=== PATIENT | male | born 1980 | race Caucasian/White ===

== ENCOUNTER 2018-04-10 12:08 | Emergency (ER) | payer OTHER, SELFPAY ==
[2018-04-10 12:17] VITALS: BP 141/86; PULSE 83; RESP 14; TEMP 36.1; O2SAT 99; BMI 30.7
--- NOTE | 2018-04-10 12:26 | ED_ITS ---
HPI - Abdominal Pain <BIRGIT Porras - Last Filed: 04/10/18 22:05> General Chief Complaint: Abdominal Pain Stated Complaint: THINKS HERNIA AND NO BM Time Seen by Provider: 04/10/18 12:13 History of Present Illness HPI narrative: 37-year-old male here for complaint of pain into his lower abdomen area and also to his left inguinal area for the last week and half. He was seen by his primary care provider today which felt discomfort on exam to the inguinal area and was concerned for a hernia. Patient states that he had a bowel movement that relieve some of his pain of prior to exam. He denies any fevers or chills. No trauma to the area. He denies any urinary symptoms. No nausea or vomiting. Positive p.o. intake. No other concerns or complaints. MD complaint: abdominal pain Related Data Home Medications Medication Instructions Recorded Confirmed naproxen 250 mg PO TID #0 09/17/16 04/10/18 Allergies Allergy/AdvReac Type Severity Reaction Status Date / Time No Known Drug Allergies Allergy Verified 04/10/18 12:20 Review of Systems <BIRGIT Porras - Last Filed: 04/10/18 22:05> Constitutional Reports as per HPI Eyes Denies change in vision, Denies eye discharge, Denies irritation and Denies loss of vision ENT Ears, Nose, Mouth, and Throat: Denies change in voice, Denies neck pain and Denies sore throat Cardiovascular Denies chest pain, Denies irregular heart rhythm, Denies lightheadedness, Denies palpitations, Denies dyspnea, Denies dyspnea on exertion and Denies orthopnea Respiratory Denies cough, Denies dyspnea, Denies dyspnea on exertion and Denies wheezing Gastrointestinal Comments: Lower abdominal pain and left inguinal pain Genitourinary Denies hematuria, Denies flank pain, Denies urinary incontinence and Denies urinary urgency Musculoskeletal Denies neck pain Integumentary/Breasts Denies pruritus, Denies erythema, Denies rash and Denies wounds Neurologic Denies confusion and Denies loss of vision Psychiatric Denies anxiety, Denies confusion, Denies depression, Denies homicidal ideation and Denies suicidal ideation Endocrine Denies palpitations Hematologic/Lymphatic Denies easy bruising Allergic/Immunologic Denies wheezing Exam <BIRGIT Porras - Last Filed: 06/25/18 22:05> Initial Vital Signs Initial Vital Signs: Vital Signs Temperature 97.0 F L 04/10/18 12:17 Pulse Rate 83 04/10/18 12:17 Respiratory Rate 14 04/10/18 12:17 Blood Pressure 141/86 H 04/10/18 12:17 Pulse Oximetry 99 04/10/18 12:17 Const General: cooperative and well developed Nutritional Appearance: well nourished Orientation: alert, awake, oriented x3 and not confused [facility] Mouth: oral mucosae normal and moist mucous membranes Eyes Conjunctivae: conjunctivae normal Sclera: sclerae normal Pupils: PERRL EOM: EOM intact bilaterally Resp Effort & Inspection: normal respiratory effort, able to speak in complete sentences, no respiratory distress and no use of accessory muscles Auscultation: clear to auscultation bilaterally, no rales, no rhonchi and no wheezes Cardio Rate: regular rate Rhythm: regular rhythm Heart Sounds: no click, no gallops, no murmurs and no rubs Pulses: normal peripheral pulses GI Inspection: non-distended Palpation: soft, no hepatosplenomegaly, No guarding, No pulsatile mass and tender (Tenderness to infra umbilical area on palpation) Auscultation: normal bowel sounds External: normal external exam, circumcised, no hernia, no inguinal lymphadenopathy and tenderness (Tenderness to left inguinal area on palpation no hernia palpated) Penis: normal penis Meatus: meatus normal Scrotum: scrotum normal Testes: normal Skin General: no rashes or lesions noted, No jaundice and No petechiae <Vicente Reyes DO - Last Filed: 04/12/18 20:06> Initial Vital Signs Initial Vital Signs: Vital Signs Temperature 97.0 F L 04/10/18 12:17 Pulse Rate 83 04/10/18 12:17 Respiratory Rate 14 04/10/18 12:17 Blood Pressure 141/86 H 04/10/18 12:17 Pulse Oximetry 99 04/10/18 12:17 Course <BIRGIT Porras - Last Filed: 04/10/18 22:05> Orders Ordered: ED Orders 04/10/18 13:07 CT abdomen pelvis w con Stat 04/10/18 13:25 Complete Blood Count AUTO DIFF Stat Comprehensive Metabolic Panel Stat Lipase Stat Vital Signs - 8 hr 04/10/18 15:19 04/10/18 16:00 Pulse Rate 82 85 Respiratory Rate 12 20 Blood Pressure 135/79 H Blood Pressure [Left Arm] 132/87 H Pulse Oximetry 100 100 <Vicente Reyes DO - Last Filed: 04/12/18 20:06> Orders Ordered: ED Orders 04/10/18 13:07 CT abdomen pelvis w con Stat 04/10/18 13:25 Complete Blood Count AUTO DIFF Stat Comprehensive Metabolic Panel Stat Lipase Stat Vital Signs - 8 hr 04/10/18 15:19 04/10/18 16:00 Pulse Rate 82 85 Respiratory Rate 12 20 Blood Pressure 135/79 H Blood Pressure [Left Arm] 132/87 H Pulse Oximetry 100 100 MDM - Abdominal Pain <BIRGIT Porras - Last Filed: 04/10/18 22:05> Lab Data Result diagrams: 04/10/18 13:25 04/10/18 13:25 Lab Results 04/10/18 04/10/18 Range/Units 13:25 13:25 WBC 7.0 (4.5-11.0) X10^3/uL RBC 4.99 (4.5-5.9) X10^6/uL Hgb 16.0 (13.5-17.5) g/dL Hct 46.4 (41-53) % MCV 93.0 (80-100) fL MCH 32.1 (26-34) PG MCHC 34.5 (30-36) % RDW 13.6 (11.6-14.8) % Plt Count 288 (150-400) X10^3/uL Neut % (Auto) 67.4 (50-75) % Lymph % (Auto) 24.6 L (25-40) % [place] % (Auto) 6.0 (3-14) % Eos % (Auto) 1.3 L (2-4) % Baso % (Auto) 0.7 (0-2) % Neut # (Auto) 4700 (5492-1233) /uL Sodium 143 (137-145) mmol/L Potassium 4.1 (3.4-5.1) mmol/L Chloride 105 (98-107) mmol/L Carbon Dioxide 26 (22-32) mmol/L BUN 16 (9-20) mg/dL Creatinine 0.80 (0.66-1.25) mg/dL Estimated GFR > 60.0 (>60) mL/min BUN/Creatinine Ratio 20.0 (6-22) Glucose 92 (70-100) mg/dL Calcium 9.9 (8.4-10.2) mg/dL Total Bilirubin 0.7 (0.2-1.3) mg/dL AST 35 (17-59) IU/L ALT 43 (21-72) IU/L Alkaline Phosphatase 79 (38-126) U/L Total Protein 8.1 (6.3-8.2) g/dL Albumin 4.6 (3.5-5.0) g/dL Globulin 3.5 (1.7-4.1) g/dL Albumin/Globulin Ratio 1.3 (1.0-2.8) Lipase 34 (23-300) U/L Imaging Data CT scan - abdomen: Radiologist's impression: PROCEDURE: CT ABDOMEN PELVIS W CON INDICATIONS: Pain to left groin and right lower quadrant TECHNIQUE: After the administration of oral and intravenous contrast, 5 mm thick sections acquired from the diaphragms to the symphysis. 5 mm thick coronal and sagittal reformats were performed. For radiation dose reduction, the following was used: automated exposure control, adjustment of mA and/or kV according to patient size. COMPARISON: None. FINDINGS: Image quality: Excellent. ABDOMEN: Lung bases: Lung bases are clear. Heart size is normal. Solid organs: Liver is normal in size and enhancement. Gallbladder is not enlarged. Biliary system is non-dilated. Pancreas enhances normally. Spleen is normal in size and enhancement. No adrenal nodules. Kidneys are normal in size and enhancement, without hydronephrosis. Peritoneum and bowel: There are areas of the wall thickening, which is more pronounced involving the transverse colon. The small bowel loops are nondilated. The appendix is not clearly seen stomach on however, what is felt to represent the appendix is grossly unremarkable without surrounding inflammation (image 62, series 2). Nodes and vessels: No retroperitoneal or mesenteric adenopathy. Aorta and inferior vena cava are normal in caliber. Miscellaneous: There is a small periumbilical fat containing hernia. PELVIS: Genitourinary: Bladder wall thickness is normal. No free fluid or loculated fluid collection is identified. Miscellaneous: No inguinal hernias or adenopathy. Bones: No suspicious bony lesions. No vertebral body compression fractures. IMPRESSION: 1. No convincing acute abnormality is appreciated within the abdomen or pelvis. 2. Nonspecific prominence of the wall of the colon is best appreciated to the transverse colon. Please correlate clinically to exclude the possibility of colitis ( infectious or inflammatory). No bowel obstruction. Dictated by: Paul Luz M.D. on 04/10/2018 at 14:20 Approved by: Paul Luz M.D. on 04/10/2018 at 14:27 MDM Narrative Medical decision making narrative: On exam patient with tenderness to infra umbilical area and also to the left inguinal area no hernia was appreciated on physical exam. CT of the abdomen and pelvis was obtained with no identified hernia. Slight thickening of the transverse colon was seen on CT however patient was not painful to the upper abdominal area. And laboratory results were unremarkable. Signs and symptoms presents as strain into the groin area. And generalized discomfort to the lower abdomen secondary to IBS. Over-the- counter Tylenol Motrin as needed for discomfort. Follow up with her primary care provider the next few days for re-evaluation. For any worsening symptoms return to the emergency room. <Vicente Reyes, DO - Last Filed: 04/12/18 20:06> Lab Data Lab Results 04/10/18 04/10/18 Range/Units 13:25 13:25 WBC 7.0 (4.5-11.0) X10^3/uL RBC 4.99 (4.5-5.9) X10^6/uL Hgb 16.0 (13.5-17.5) g/dL Hct 46.4 (41-53) % MCV 93.0 (80-100) fL MCH 32.1 (26-34) PG MCHC 34.5 (30-36) % RDW 13.6 (11.6-14.8) % Plt Count 288 (150-400) X10^3/uL Neut % (Auto) 67.4 (50-75) % Lymph % (Auto) 24.6 L (25-40) % [place] % (Auto) 6.0 (3-14) % Eos % (Auto) 1.3 L (2-4) % Baso % (Auto) 0.7 (0-2) % Neut # (Auto) 4700 (4315-8627) /uL Sodium 143 (137-145) mmol/L Potassium 4.1 (3.4-5.1) mmol/L Chloride 105 (98-107) mmol/L Carbon Dioxide 26 (22-32) mmol/L BUN 16 (9-20) mg/dL Creatinine 0.80 (0.66-1.25) mg/dL Estimated GFR > 60.0 (>60) mL/min BUN/Creatinine Ratio 20.0 (6-22) Glucose 92 (70-100) mg/dL Calcium 9.9 (8.4-10.2) mg/dL Total Bilirubin 0.7 (0.2-1.3) mg/dL AST 35 (17-59) IU/L ALT 43 (21-72) IU/L Alkaline Phosphatase 79 (38-126) U/L Total Protein 8.1 (6.3-8.2) g/dL Albumin 4.6 (3.5-5.0) g/dL Globulin 3.5 (1.7-4.1) g/dL Albumin/Globulin Ratio 1.3 (1.0-2.8) Lipase 34 (23-300) U/L Discharge Plan Departure Patient Disposition: Home, Self-Care Clinical Impression: Inguinal strain Discharge Date/Time: 04/10/18 15:59 Interventions: ED Discharge Assessment Last Done: 04/10/18 16:00 Instructions: DI for Groin Strain Activity Restrictions/Additional Instructions: Laboratory results today were unremarkable. CT of the abdomen was unremarkable exception of some thickening of the wall of the transverse colon. Signs and symptoms presents as a strain into the groin area and pain is secondary to irritable bowel syndrome. Use [id number] Tylenol Motrin as needed for any discomfort. Follow up with primary care provider later this week for re- evaluation. For any worsening symptoms return to the emergency room. Prescriptions: No Action naproxen 250 MG tablet 250 mg PO TID Qty: 0 RF: 0 Referrals: Marguerite Chen DO [Primary Care Provider] - <Vicente Reyes DO - Last Filed: 04/12/18 20:06> Cosign ED Attending Paige Attestation: I was immediately available in the department for consultation. Documentation has been reviewed. I agree with assessment and plan.
--- NOTE | 2018-04-10 13:07 | DI.CT.S_ITS ---
PROCEDURE: CT ABDOMEN PELVIS W CON INDICATIONS: Pain to left groin and right lower quadrant TECHNIQUE: After the administration of oral and intravenous contrast, 5 mm thick sections acquired from the diaphragms to the symphysis. 5 mm thick coronal and sagittal reformats were performed. For radiation dose reduction, the following was used: automated exposure control, adjustment of mA and/or kV according to patient size. COMPARISON: None. FINDINGS: Image quality: Excellent. ABDOMEN: Lung bases: Lung bases are clear. Heart size is normal. Solid organs: Liver is normal in size and enhancement. Gallbladder is not enlarged. Biliary system is non-dilated. Pancreas enhances normally. Spleen is normal in size and enhancement. No adrenal nodules. Kidneys are normal in size and enhancement, without hydronephrosis. Peritoneum and bowel: There are areas of the wall thickening, which is more pronounced involving the transverse colon. The small bowel loops are nondilated. The appendix is not clearly seen stomach on however, what is felt to represent the appendix is grossly unremarkable without surrounding inflammation (image 62, series 2). Nodes and vessels: No retroperitoneal or mesenteric adenopathy. Aorta and inferior vena cava are normal in caliber. Miscellaneous: There is a small periumbilical fat containing hernia. PELVIS: Genitourinary: Bladder wall thickness is normal. No free fluid or loculated fluid collection is identified. Miscellaneous: No inguinal hernias or adenopathy. Bones: No suspicious bony lesions. No vertebral body compression fractures. IMPRESSION: 1. No convincing acute abnormality is appreciated within the abdomen or pelvis. 2. Nonspecific prominence of the wall of the colon is best appreciated to the transverse colon. Please correlate clinically to exclude the possibility of colitis (infectious or inflammatory). No bowel obstruction. Dictated by: Paul Luz M.D. on 04/10/2018 at 14:20 Approved by: Paul Luz M.D. on 04/10/2018 at 14:27
[2018-04-10 13:33] LABS: Add Manual Diff / Slide Review NO; Basophils Percent Auto 0.7 % (0-2); Eosinophils Percent Auto 1.3 % (2-4); Hematocrit 46.4 % (41-53); Lymphocytes Percent Auto 24.6 % (25-40); Mean Corpuscular HGB Conc 34.5 % (30-36); Mean Corpuscular Hemoglobin 32.1 PG (26-34); Neutrophils Absolute Auto 4700 /uL (3000-5900); Neutrophils Percent Auto 67.4 % (50-75); Platelet Count 288 X10^3/uL (150-400); Red Blood Cell Count 4.99 X10^6/uL (4.5-5.9); Red Cell Distribution Width 13.6 % (11.6-14.8)
[2018-04-10 13:47] LABS: Alanine Aminotransferase 43 IU/L (21-72); Albumin 4.6 g/dL (3.5-5.0); Albumin Globulin Ratio 1.3 (1.0-2.8); Alkaline Phosphatase 79 U/L (38-126); Aspartate Aminotransferase 35 IU/L (17-59); Bilirubin Total 0.7 mg/dL (0.2-1.3); Blood Urea Nitrogen 16 mg/dL (9-20); Calcium 9.9 mg/dL (8.4-10.2); Carbon Dioxide 26 mmol/L (22-32); Chloride 105 mmol/L (98-107); Estimated Glomerular Filt Rate > 60.0 mL/min (>60); Globulin 3.5 g/dL (1.7-4.1); Glucose 92 mg/dL (70-100); HEMOLYSIS 29 (0-50); Lipase 34 U/L (23-300); Potassium 4.1 mmol/L (3.4-5.1); Sodium 143 mmol/L (137-145); Total Protein 8.1 g/dL (6.3-8.2)
[2018-04-10 15:19] VITALS: BP 132/87; PULSE 82; RESP 12; O2SAT 100
[2018-04-10 16:00] VITALS: BP 135/79; PULSE 85; RESP 20; O2SAT 100
== END 2018-04-10 15:59 | disposition home or self-care (01) ==
PROVIDERS: Emergency Provider Nurse Practitioner Family; PCP Family Medicine
DX: S76.219A Strain of adductor muscle, fascia and tendon of unspecified thigh, initial encounter (principal)
CPT/HCPCS: 36591; 74177; 80053; 81003; 83690; 85025; 99282; 99284

== ENCOUNTER 2019-12-12 13:51 | Day surgery (SDC) | payer OTHER, SELFPAY ==
--- NOTE | 2019-12-12 | PATH_ITS ---
[facility] Accession Number: [id number] . 01 Material submitted: . colon - RANDOM COLON BIOPSIES . 02 Diagnosis: Random Colon, Biopsies: Colonic mucosa with no diagnostic abnormality. Negative for active, chronic, and microscopic colitis. Negative for dysplasia and malignancy. . MRV 12/14/2019 1107 Local . 02 Electronically signed: . Josafat Dinh MD, PhD, Pathologist NPI- [id number] . 01 Gross description: . RANDOM COLON BIOPSIES: Received in formalin are multiple fragment(s) of [place], soft tissue measuring 0.6 x 0.4 x 0.2 cm in aggregate submitted entirely in 1 cassette(s) /QBJ 12/13/2019 0530 Local . 02 Pathologist provided ICD-10: R19.4 . 02 CPT . 052135 Performed at: 01 [facility] [address], [place], [place] [id number] MD Antonio Francis MD Phone: [phone] Performed at: 02 [facility] [address] [place], [place] [id number] MD Shari Bacon MD Phone: [phone]
[2019-12-12 14:21] VITALS: BP 135/82; PULSE 88; RESP 20; TEMP 37.1; O2SAT 95; BMI 33.2
[2019-12-12] MEDS: SODIUM CHLORIDE 0.9% 1,000 ML 200 ML IV (14:21)
--- NOTE | 2019-12-12 14:21 | PM.HP.1 ---
History of Present Illness History of Present Illness Date Patient Seen: 12/12/19 Chief complaint: [id number] Narrative: Rectal bleeding and diarrhea Patient History Family & Social History Family History (Updated 09/17/16 @ 00:00 by Conversion Provider) Father Age: 63 Diabetes mellitus Essential hypertension High cholesterol Tobacco & Substance use: Smoking Status Former smoker alcohol intake frequency 0-2 drinks per day Substance Use Type does not use Meds Home Medications and Allergies Allergies Allergy/AdvReac Type Severity Reaction Status Date / Time No Known Drug Allergies Allergy Verified 12/12/19 14:18 Exam Narrative Exam Narrative: Oropharynx free of lesions Chest clear to auscultation percussion Cardiac exam reveals no S3 or murmur Assessment & Plan Assessment & Plan narrative: Rectal bleeding and diarrhea. Need for colonoscopy to rule out underlying colitis. Risks, benefits, and alternatives have been explained.
--- NOTE | 2019-12-12 14:22 | PM.OP.ENDO ---
Operative Date/Time/Diagnoses Date of procedure: 12/12/19 Pre-op diagnosis: See indication and findings Procedure & Clinicians Study performed: Colonoscopy Same procedure as scheduled: Yes Indications: Rectal bleeding and diarrhea Surgeon: Ariela Echevarria Procedure Notes Procedure in detail: After informed consent was obtained the patient was placed in the left lateral decubitus position. The video colonoscope was introduced through rectum and slowly advanced to the cecum. On slow withdrawal mucosa was carefully examined. Preparation was good. The scope was removed. The patient tolerated procedure well. Blood loss none Complications none Sedation MAC Findings 1. Moderate internal hemorrhoids 2. Otherwise negative colonoscopy to cecum. Random biopsies taken to rule out microscopic colitis.
[2019-12-12 15:56] VITALS: BP 132/80; PULSE 81; RESP 17; TEMP 36.4; O2SAT 98
[2019-12-12 16:01] VITALS: BP 115/81; PULSE 69; RESP 9; TEMP 36.4; O2SAT 99
[2019-12-12 16:06] VITALS: BP 120/85; PULSE 90; RESP 10; TEMP 36.4; O2SAT 99
[2019-12-12 16:11] VITALS: BP 145/95; PULSE 84; RESP 15; TEMP 36.3; O2SAT 97
== END 2019-12-12 16:40 | disposition home or self-care (01) ==
PROVIDERS: PCP Family Medicine; Referring Provider Internal Medicine Gastroenterology; Visit Provider Internal Medicine Gastroenterology
PROC: 0DJD8ZZ Inspection of Lower Intestinal Tract, Via Natural or Artificial Opening Endoscopic (ICD-10-PCS; CPT 45378; principal; 2019-12-12 15:00)
DX: K62.5 Hemorrhage of anus and rectum (principal); R19.7 Diarrhea, unspecified; K64.8 Other hemorrhoids
CPT/HCPCS: 45380; J2250; J2704

== ENCOUNTER 2023-05-29 23:32 | Emergency (ER) | payer OTHER, SELFPAY ==
[2023-05-29 23:37] VITALS: BP 175/95; PULSE 84; RESP 16; TEMP 36.1; O2SAT 98; BMI 31.7
--- NOTE | 2023-05-29 23:41 | DI.RAD.S_ITS ---
PROCEDURE: XR CHEST 1V INDICATIONS: chest pain TECHNIQUE: One view of the chest was acquired. COMPARISON: None. FINDINGS: Surgical changes and devices: None. Lungs and pleura: Lungs are clear. No pleural effusions or pneumothorax. Mediastinum: Mediastinal contours appear normal. Heart size is normal. Bones and chest wall: No suspicious bony lesions. Overlying soft tissues appear unremarkable. IMPRESSION: 1. No acute cardiopulmonary disease. Dictated by: Antonio Morales M.D. on 05/30/2023 at 0:47 Approved by: Antonio Morales M.D. on 05/30/2023 at 0:54
[2023-05-30 00:27] LABS: Add Manual Diff / Slide Review NO; Basophils Absolute Auto 100 /uL (0-100); Basophils Percent Auto 0.7 % (0-2); Eosinophils Absolute Auto 100 /uL (0-450); Hematocrit 45.4 % (41-53); Hemoglobin 15.7 g/dL (13.5-17.5); Lymphocytes Absolute Auto 1800 /uL (1100-4500); Lymphocytes Percent Auto 22.5 % (25-40); Mean Corpuscular HGB Conc 34.6 % (30-36); Mean Corpuscular Hemoglobin 31.7 PG (26-34); Mean Corpuscular Volume 91.8 fL (80-100); Monocytes Absolute Auto 600 /uL (0-900); Monocytes Percent Auto 7.5 % (3-14); Neutrophils Absolute Auto 5500 /uL (1500-7000); Neutrophils Percent Auto 68.3 % (50-75); Platelet Count 292 X10^3/uL (150-400); Red Blood Cell Count 4.95 X10^6/uL (4.5-5.9); Red Cell Distribution Width 13.1 % (11.6-14.8)
[2023-05-30 00:30] VITALS: BP 144/97; PULSE 81; RESP 16; O2SAT 96
[2023-05-30 00:35] LABS: Alanine Aminotransferase 21 IU/L (<50); Albumin 4.3 g/dL (3.5-5.0); Albumin Globulin Ratio 1.2 (1.0-2.8); Alkaline Phosphatase 85 U/L (38-126); Aspartate Aminotransferase 27 IU/L (17-59); BUN Creatinine Ratio 19.8 (6-22); Bilirubin Total 0.7 mg/dL (0.2-1.3); Blood Urea Nitrogen 20 mg/dL (9-20); Calcium 9.5 mg/dL (8.4-10.2); Carbon Dioxide 31 mmol/L (22-32); Chloride 103 mmol/L (98-107); Creatine Kinase 96 U/L (55-170); Estimated Glomerular Filt Rate > 60 mL/min (>60); Globulin 3.7 g/dL (1.7-4.1); Glucose 120 mg/dL (70-100); HEMOLYSIS 18 (0-50); Lipase 63 U/L (23-300); Potassium 3.7 mmol/L (3.4-5.1); Sodium 142 mmol/L (137-145)
[2023-05-30 00:42] LABS: C-Reactive Protein Quant 0.8 mg/dL (<1.0)
[2023-05-30 00:43] LABS: Prothrombin Time 11.5 SECONDS (10.1-12.7)
[2023-05-30 00:46] LABS: PTT Partial Thromboplastin Tim 31 SECONDS (26-36)
[2023-05-30 00:47] LABS: Troponin I < 0.012 ng/mL (0.01-0.034)
[2023-05-30 00:52] LABS: Erythrocyte Sedimentation Rate 8 MM/HR (0-15)
[2023-05-30 01:01] LABS: D Dimer < 215 ng/ml (<500)
--- NOTE | 2023-05-30 01:03 | ED.CHESTPAIN ---
HPI - Chest Pain General Chief Complaint: Chest Pain Stated Complaint: CHEST PAIN Time Seen by Provider: 05/29/23 23:37 Source: patient Mode of arrival: Ambulatory History of Present Illness HPI narrative: 42-year-old male former smoker presents with a chief complaint of right-sided chest pain with radiation into his right shoulder this started sudden onset while playing video games tonight. He states that he has a history of irritable bowel syndrome and had a loose stool associated with this episode of pain. He feels anxious and states that he has a strong cardiac history in his family. He states he had this sudden onset sharp and stabbing pain and when he pressed his right pectoral muscle it rapidly worsened the pain as did movement. He denies any exertional symptoms or exercise intolerance. He denies recent travel, trauma or injury. Related Data Home Medications Medication Instructions Recorded Confirmed dicyclomine 20 mg tablet 20 mg PO 4XD 05/30/23 05/30/23 omeprazole 20 mg capsule,delayed 20 mg PO DAILY 05/30/23 05/30/23 release Allergies Allergy/AdvReac Type Severity Reaction Status Date / Time oral contrast AdvReac Diarrhea Uncoded 05/29/23 23:40 Review of Systems Review of Systems Narrative: GENERAL: Denies chills, fatigue, malaise, fever, sweats. HEENT: Denies sinus pain, ear pain, sore throat, difficulty swallowing, dizziness. RESPIRATORY: Denies dyspnea, cough, wheezing, hemoptysis, sputum. CARDIOVASCULAR: See HPI GASTROINTESTINAL: Denies nausea, vomiting, abdominal pain, diarrhea, constipation, melena. : Denies dysuria, frequency, incontinence, hematuria, urinary retention. MUSCULOSKELETAL: denies weakness, joint pain, or bony pain SKIN: Denies rash, skin lesions, or other NEUROLOGIC: Denies weakness, headache, numbness, change in speech, confusion, seizures, incoordination. PSYCHIATRIC: No concerning psychosocial issues. 12 point review of systems is negative except for those stated above Patient History Surgical History Status post hernia repair Status post knee surgery Family History Father Age: 66 Diabetes mellitus Essential hypertension High cholesterol Social History household members: none Smoking Status: Former smoker Smoking Status: Former smoker alcohol intake frequency: 0-2 drinks per day Substance Use Type: does not use Exam Narrative Exam Narrative: GENERAL: [42] year old patient appears stated age. Well-developed patient, in mild distress. HEAD: Atraumatic. Normocephalic. EYES: Pupils equal round and reactive. Extraocular motions intact. No scleral icterus. No injection or drainage. ENT: Nose without bleeding, purulent drainage. Throat without erythema, tonsillar hypertrophy or exudate. Airway patent. NECK: Trachea midline. Non tender CARDIOVASCULAR: Regular rate and rhythm without murmurs, gallops, or rubs. Right-sided chest pain to palpation RESPIRATORY: Clear to auscultation. Breath sounds equal bilaterally. No wheezes, rales, or rhonchi. GASTROINTESTINAL: Abdomen soft, non-tender, nondistended. EXTREMITIES: No edema or joint tenderness. BACK: Nontender without deformity or crepitance. No flank tenderness. NEURO: AOx3. SKIN: No rash or erythema of visible areas Initial Vital Signs Initial Vital Signs: Vital Signs Temperature 97 F L 05/29/23 23:37 Pulse Rate 84 05/29/23 23:37 Respiratory Rate 16 05/29/23 23:37 Blood Pressure 175/95 H 05/29/23 23:37 Pulse Oximetry 98 05/29/23 23:37 Oxygen Delivery Method Room Air 05/29/23 23:37 Scores HEART Score Heart Score history: Slightly Suspicious Heart Score EKG: Normal Heart Score Age: < 45 years old Heart Score risk factors: No known risk factors Heart Score troponin: < or = to normal limit Heart Score Total: 0 Course Orders Ordered: ED Orders 05/29/23 23:41 XR chest 1V Stat Complete Blood Count AUTO DIFF Stat Comprehensive Metabolic Panel Stat Lipase Stat Magnesium Stat PTT Partial Thromboplastin Sam Stat Prothrombin Time INR Stat Troponin & CK Cardiac Panel Stat EKG-12 Lead Stat 05/29/23 23:50 CRP [C-Reactive Protein Quant] Stat D Dimer Stat ESR [Erythrocyte Sedimentation Rate] Stat 05/30/23 02:56 Troponin & CK Cardiac Panel Stat Discontinued Medications Aspirin (Aspirin 81 Mg Chew Tab) 324 mg PO NOW ONE Stop: 05/29/23 23:42 Last Admin: 05/30/23 01:13 Dose: 324 mg Documented By: SB Vital Signs Vital signs: Vital Signs - 8 hr 08/13/23 23:37 05/30/23 00:30 05/30/23 04:04 Temperature 97 F L Pulse Rate 84 81 69 Respiratory Rate 16 16 20 Blood Pressure 175/95 H 144/97 H 130/89 Pulse Oximetry 98 96 97 Oxygen Delivery Method Room Air Room Air Room Air MDM - Chest Pain Lab Data 05/30/23 00:03 05/30/23 00:03 Labs: Lab Results 05/30/23 05/30/23 05/30/23 Range/Units 00:03 00:03 00:03 WBC 8.0 (4.5-11.0) X10^3/uL RBC 4.95 (4.5-5.9) X10^6/uL Hgb 15.7 (13.5-17.5) g/dL Hct 45.4 (41-53) % MCV 91.8 (80-100) fL MCH 31.7 (26-34) PG MCHC 34.6 (30-36) % RDW 13.1 (11.6-14.8) % Plt Count 292 (150-400) X10^3/uL Neut % (Auto) 68.3 (50-75) % Lymph % (Auto) 22.5 L (25-40) % [place] % (Auto) 7.5 (3-14) % Eos % (Auto) 1.0 L (2-4) % Baso % (Auto) 0.7 (0-2) % Neut # (Auto) 5500 (1044-2040) /uL Lymph # (Auto) 1800 (9222-7676) /uL [place] # (Auto) 600 (0-900) /uL Eos # (Auto) 100 (0-450) /uL Baso # (Auto) 100 (0-100) /uL ESR (0-15) MM/HR PT 11.5 (10.1-12.7) SECONDS INR 1.0 (0.9-1.3) APTT 31 (26-36) SECONDS D-Dimer (<500) ng/ml Sodium 142 (137-145) mmol/L Potassium 3.7 (3.4-5.1) mmol/L Chloride 103 (98-107) mmol/L Carbon Dioxide 31 (22-32) mmol/L BUN 20 (9-20) mg/dL Creatinine 1.01 (0.66-1.25) mg/dL Estimated GFR > 60 (>60) mL/min BUN/Creatinine Ratio 19.8 (6-22) Glucose 120 H (70-100) mg/dL Calcium 9.5 (8.4-10.2) mg/dL Magnesium 2.0 (1.6-2.3) mg/dL Total Bilirubin 0.7 (0.2-1.3) mg/dL AST 27 (17-59) IU/L ALT 21 (<50) IU/L Alkaline Phosphatase 85 (38-126) U/L Total Creatine Kinase 96 (55-170) U/L Troponin I < 0.012 (0.01-0.034) ng/mL C-Reactive Protein (<1.0) mg/dL Total Protein 8.0 (6.3-8.2) g/dL Albumin 4.3 (3.5-5.0) g/dL Globulin 3.7 (1.7-4.1) g/dL Albumin/Globulin Ratio 1.2 (1.0-2.8) Lipase 63 (23-300) U/L 05/30/23 05/30/23 05/30/23 Range/Units 00:03 00:03 00:03 WBC (4.5-11.0) X10^3/uL RBC (4.5-5.9) X10^6/uL Hgb (13.5-17.5) g/dL Hct (41-53) % MCV (80-100) fL MCH (26-34) PG MCHC (30-36) % RDW (11.6-14.8) % Plt Count (150-400) X10^3/uL Neut % (Auto) (50-75) % Lymph % (Auto) (25-40) % [place] % (Auto) (3-14) % Eos % (Auto) (2-4) % Baso % (Auto) (0-2) % Neut # (Auto) (9175-0791) /uL Lymph # (Auto) (1111-1650) /uL [place] # (Auto) (0-900) /uL Eos # (Auto) (0-450) /uL Baso # (Auto) (0-100) /uL ESR 8 (0-15) MM/HR PT (10.1-12.7) SECONDS INR (0.9-1.3) APTT (26-36) SECONDS D-Dimer < 215 (<500) ng/ml Sodium (137-145) mmol/L Potassium (3.4-5.1) mmol/L Chloride (98-107) mmol/L Carbon Dioxide (22-32) mmol/L BUN (9-20) mg/dL Creatinine (0.66-1.25) mg/dL Estimated GFR (>60) mL/min BUN/Creatinine Ratio (6-22) Glucose (70-100) mg/dL Calcium (8.4-10.2) mg/dL Magnesium (1.6-2.3) mg/dL Total Bilirubin (0.2-1.3) mg/dL AST (17-59) IU/L ALT (<50) IU/L Alkaline Phosphatase (38-126) U/L Total Creatine Kinase (55-170) U/L Troponin I (0.01-0.034) ng/mL C-Reactive Protein 0.8 (<1.0) mg/dL Total Protein (6.3-8.2) g/dL Albumin (3.5-5.0) g/dL Globulin (1.7-4.1) g/dL Albumin/Globulin Ratio (1.0-2.8) Lipase (23-300) U/L 05/30/23 Range/Units 02:56 WBC (4.5-11.0) X10^3/uL RBC (4.5-5.9) X10^6/uL Hgb (13.5-17.5) g/dL Hct (41-53) % MCV (80-100) fL MCH (26-34) PG MCHC (30-36) % RDW (11.6-14.8) % Plt Count (150-400) X10^3/uL Neut % (Auto) (50-75) % Lymph % (Auto) (25-40) % [place] % (Auto) (3-14) % Eos % (Auto) (2-4) % Baso % (Auto) (0-2) % Neut # (Auto) (8169-5764) /uL Lymph # (Auto) (5492-4260) /uL [place] # (Auto) (0-900) /uL Eos # (Auto) (0-450) /uL Baso # (Auto) (0-100) /uL ESR (0-15) MM/HR PT (10.1-12.7) SECONDS INR (0.9-1.3) APTT (26-36) SECONDS D-Dimer (<500) ng/ml Sodium (137-145) mmol/L Potassium (3.4-5.1) mmol/L Chloride (98-107) mmol/L Carbon Dioxide (22-32) mmol/L BUN (9-20) mg/dL Creatinine (0.66-1.25) mg/dL Estimated GFR (>60) mL/min BUN/Creatinine Ratio (6-22) Glucose (70-100) mg/dL Calcium (8.4-10.2) mg/dL Magnesium (1.6-2.3) mg/dL Total Bilirubin (0.2-1.3) mg/dL AST (17-59) IU/L ALT (<50) IU/L Alkaline Phosphatase (38-126) U/L Total Creatine Kinase 90 (55-170) U/L Troponin I < 0.012 (0.01-0.034) ng/mL C-Reactive Protein (<1.0) mg/dL Total Protein (6.3-8.2) g/dL Albumin (3.5-5.0) g/dL Globulin (1.7-4.1) g/dL Albumin/Globulin Ratio (1.0-2.8) Lipase (23-300) U/L ECG Data Interpretation: 2345] EKG is normal sinus rhythm rate [80 ] and free of any signs of ischemia or ectopy. No ST segmental elevation or depression. No T wave inversions MDM Narrative Medical decision making narrative: CC: 42-year-old male with sudden stabbing right-sided chest pain Complicating co-morbidities: Age Data collected from: Patient Medical records reviewed: Prior notes reviewed in our EMR Differential considered, but not limited to: Muscle spasm versus inflammation versus cardiac ischemia versus pulmonary embolism versus other Exam documented above, pertinent findings include: Reproducible right chest pain, heart regular, lungs clear Lab Test results independently reviewed as above. Pertinent findings: No significant abnormal findings, D-dimer less than 215, troponin negative x2 Independently reviewed EKG as above Imaging studies independently reviewed: No acute cardiopulmonary disease Scores Used: HEART MIPS Elements: Consultations: Treatments: Re-evaluations: Discussion: Disposition: see below, along with detailed discharge instructions that have been reviewed with patient as well as indications for ED re-evaluation and additional outpatient follow up Discharge Plan Departure Patient Disposition: Home Clinical Impression: Atypical chest pain Instructions: DI for Atypical Chest Pain Activity Restrictions/Additional Instructions: *You have been diagnosed with [atypical chest pain. As we discussed your history and physical exam as well as EKG and labs would suggest there is a very low likelihood that your chest pain today is related to heart attack or blood clot.] *What to do: *Please continue to take your regular medications as directed. [ ] New medication prescriptions sent to your pharmacy: [ ] [ ] New medication written as a paper prescription [ ] No new medications given *Please follow up with your primary care provider in 2-3 days, call for an appointment. Let them know you were seen in the Emergency Department and that we ask that you be seen in follow up. We will electronically transmit a record of today's note if your PCP is in our system *If you do not have a primary care provider please contact the [facility] Resource line at [phone]. They will ask some questions about your medical history and help get you set up with a doctor in the community. *Return to Emergency Department if you should have any new, worsening or concerning symptoms, such as [fever greater than 101 F, shaking chills, worsening pain, persistent vomiting or other bothersome symptoms] Prescriptions: No Action dicyclomine 20 mg tablet 20 mg PO 4XD omeprazole 20 mg capsule,delayed release(DR/EC) 20 mg PO DAILY Referrals: Marguerite Chen DO [Primary Care Provider] - Stand Alone Forms: Patient Portal/API
[2023-05-30] MEDS: ASPIRIN 81 MG CHEW TAB 324 MG PO (01:13)
[2023-05-30 03:13] LABS: Creatine Kinase 90 U/L (55-170)
[2023-05-30 03:26] LABS: Troponin I < 0.012 ng/mL (0.01-0.034)
[2023-05-30 04:04] VITALS: BP 130/89; PULSE 69; RESP 20; O2SAT 97
== END 2023-05-30 04:07 | disposition home or self-care (01) ==
PROVIDERS: Emergency Provider Emergency Medicine; PCP Family Medicine
DX: R07.89 Other chest pain (principal)
CPT/HCPCS: 36415; 71045; 80053; 82550; 83690; 83735; 84484; 85025; 85379; 85610; 85651; 85730; 86140; 93005; 99284

== ENCOUNTER → 2023-11-08 07:34 | Outpatient (CLI) | payer OTHER, SELFPAY ==
--- NOTE | 2023-11-09 02:30 | DI.NM.S_ITS ---
DATE OF SERVICE: 11/08/2023 PROCEDURE: Exercise stress test INDICATIONS: Chest pain. CARDIAC STRESS: The patient underwent exercise stress test under the supervision of an attending staff. He walked on Allen protocol for 9 minutes and 01 seconds, achieved maximum heart rate of 151, which was 86% of target heart rate. Resting blood pressure 122/94. Peak blood pressure 148/84. Achieved 10.1 METS of workload. Baseline rhythm sinus. During stress, no convincing ischemic changes seen. No significant arrhythmias. No chest pain or anginal symptoms. The patient had knee pain. CONCLUSION: Exercise stress test is negative for inducible ischemia. Normal hemodynamic response. Achieved 10.1 METS of workload. No significant arrhythmias or anginal symptoms. Overall, low-risk exercise stress test. Kip Spencer - [facility]/tabitha/daniel doc#: [id number]/job#: [id number] dd: 11/08/2023 13:02:00 dt: 11/09/2023 02:16:00 DICTATING /COPIES TO: Real White MD COPIES MNE: SERGE;
== END ==
LOC: RAD 07:35
PROVIDERS: Referring Provider Internal Medicine Cardiovascular Disease; Visit Provider Internal Medicine Cardiovascular Disease
DX: R07.9 Chest pain, unspecified (principal)
CPT/HCPCS: 93017

== ENCOUNTER → 2024-02-27 07:10 | Outpatient (CLI) | payer OTHER, SELFPAY ==
--- NOTE | 2024-02-27 07:11 | DI.US.S_ITS ---
PROCEDURE: US ABDOMEN LIMITED INDICATIONS: RIGHT GROIN PAIN/SWELLING TECHNIQUE: Real-time scanning was performed of the abdominal and retroperitoneal organs, with image documentation. COMPARISON: None. FINDINGS: Targeted sonographic evaluation of the patient directed area of concern within the right inguinal region demonstrates no mass lesion, abnormal fluid collection, or inguinal hernia. IMPRESSION: No sonographic abnormalities identified in the right inguinal region. Specifically, no mass, fluid collection, or inguinal hernia. Dictated by: Avi Santos M.D. on 02/27/2024 at 8:30 Approved by: Avi Santos M.D. on 02/27/2024 at 8:31
== END ==
PROVIDERS: Referring Provider Nurse Practitioner Family; Visit Provider Nurse Practitioner Family
DX: R35.0 Frequency of micturition (principal); R10.2 Pelvic and perineal pain
CPT/HCPCS: 76705